=== PATIENT | male | born 1950 | race Caucasian/White ===

== ENCOUNTER 2018-12-08 19:27 | Emergency (ER) | payer MEDICARE, OTHER ==
[~2018-12-08] VITALS: Ht 188 cm; Wt 122.5 kg
--- NOTE | 2018-12-08 19:47 | NUR ---
Pt provided urine sample, sent to lab.
--- NOTE | 2018-12-08 19:48 | NUR ---
MD AT BEDSIDE FOR HX AND PHYSICAL
--- NOTE | 2018-12-08 19:54 | NUR ---
LAB AT BEDSIDE
[2018-12-08 20:02] LABS: BASOPHILS % (AUTO) 0.2 % (0.0-2.0); EOSINOPHILS % (AUTO) 0.3 % (0.0-7.0); HEMATOCRIT 42.5 % (36.7-47.1); HEMOGLOBIN 14.1 g/dL (12.5-16.3); LYMPHOCYTES # (AUTO) 0.7 K/uL (20.0-40.0); LYMPHOCYTES % (AUTO) 5.2 % (20.5-51.5); MEAN CORPUSCULAR HEMOGLOBIN 31.1 uug (23.8-33.4); MEAN CORPUSCULAR HGB CONC 33 g/dL (32.5-36.3); MEAN CORPUSCULAR VOLUME 93.4 fL (73.0-96.2); MONOCYTES # (AUTO) 0.8 K/uL (2.0-10.0); MONOCYTES % (AUTO) 6.8 % (0.0-11.0); NEUTROPHILS # (AUTO) 10.9 K/uL (1.8-8.9); NEUTROPHILS % (AUTO) 87.5 % (38.5-71.5); PLATELET COUNT (AUTO) 284 K/uL (152-348); RED BLOOD CELL COUNT(AUTO) 4.54 MIL/uL (4.06-5.63); WHITE BLOOD COUNT (AUTO) 12.5 K/uL (3.6-10.2)
[2018-12-08 20:06] LABS: *BILIRUBIN,URIN NEGATIVE (NEGATIVE); *BLOOD, URINE 1+ (NEGATIVE); *CLARITY,URINE CLEAR (CLEAR); *COLOR,URINE YELLOW (YELLOW); *KETONES,URINE NEGATIVE (NEGATIVE); *UROBILINOGEN,URINE 0.2 E.U./dl (NORMAL); LEUKOCYTE ESTERASE ,URINE 2+ (NEGATIVE); NITRITE, URINE NEGATIVE (NEGATIVE); UGLUCOSE NEGATIVE (NEGATIVE)
[2018-12-08 20:10] LABS: CREATININE 1.2 mg/dL (0.6-1.3); POTASSIUM 4.3 mmol/L (3.5-5.1)
[2018-12-08 20:17] LABS: BACTERIA,URINE NONE SEEN /HPF (NONE SEEN); SQUAMOUS EPITHELIAL CELL,UR FEW /HPF (NONE SEEN)
--- NOTE | 2018-12-08 20:31 | NUR ---
CALLED AND LEFT MESSAGE FOR CHELA SANCHES (UROLOGY CONSULT)
[2018-12-08 20:37] LABS: BILIRUBIN,DIRECT 0.2 mg/dL (0.0-0.2); BILIRUBIN,TOTAL 0.9 mg/dL (0.2-1.0); TOTAL PROTEIN, SERUM 7.6 g/dL (6.4-8.2)
--- NOTE | 2018-12-08 20:48 | NUR ---
CALLED AND LEFT MESSAGE FOR MARKO SANCHES (UROLOGY CONSULT)
[2018-12-08] MEDS ORDERED: LEVOFLOXACIN 500 MG/D5W 100ML PIGGYBACK IV ONE (21:15)
[2018-12-08] MEDS ORDERED: LEVOFLOXACIN 500 MG/D5W 100 ML ONE (21:20)
--- NOTE | 2018-12-08 21:45 | NUR ---
[employer]IVE [employer] DEVELOPER AT BEDSIDE
--- NOTE | 2018-12-08 22:32 | NUR ---
Patient discharged to home in stable conditon. Written and verbal after care instructions given. Patient verbalizes understanding of instructions. IV SALINE LOCK D/C AMBULATORY W/ STABLE GAIT ALL BELONGINGS W/ PT
--- NOTE | 2018-12-08 22:50 | NUR ---
Ugo mcdonnell in ED - 12/08/18 at 2307 by JUAN CALL FOR BED DONE. PT WILL BE ADMITTED TO 323 EPIC PANEL CALL DONE
[2018-12-08 23:34] VITALS: BP 116/69
== END 2018-12-08 22:32 | disposition home or self-care (01) ==
LOC: ER 19:28
DX: N39.0 Urinary tract infection, site not specified (principal); Z87.891 Personal history of nicotine dependence; Z91.040 Latex allergy status
CPT/HCPCS: 36415; 76775; 80048; 80076; 81000; 81001; 83605; 85025; 87040 ×2; 87086; 96365; 99284; J1956; A4663

== ENCOUNTER 2018-12-10 18:03 | Inpatient (IN) | payer MEDICARE, OTHER ==
[~2018-12-10] VITALS: Ht 188 cm; Wt 120.3 kg
[2018-12-10 18:32] LABS: BASOPHILS % (AUTO) 0.3 % (0.0-2.0); EOSINOPHILS % (AUTO) 0.5 % (0.0-7.0); HEMATOCRIT 40.2 % (36.7-47.1); HEMOGLOBIN 13.3 g/dL (12.5-16.3); LYMPHOCYTES # (AUTO) 0.7 K/uL (20.0-40.0); LYMPHOCYTES % (AUTO) 7.1 % (20.5-51.5); MEAN CORPUSCULAR HEMOGLOBIN 31.1 uug (23.8-33.4); MEAN CORPUSCULAR HGB CONC 33 g/dL (32.5-36.3); MEAN CORPUSCULAR VOLUME 94.3 fL (73.0-96.2); MONOCYTES # (AUTO) 0.4 K/uL (2.0-10.0); MONOCYTES % (AUTO) 4.1 % (0.0-11.0); NEUTROPHILS # (AUTO) 8.5 K/uL (1.8-8.9); PLATELET COUNT (AUTO) 229 K/uL (152-348); RED BLOOD CELL COUNT(AUTO) 4.26 MIL/uL (4.06-5.63); WHITE BLOOD COUNT (AUTO) 9.7 K/uL (3.6-10.2)
[2018-12-10 18:33] LABS: *BILIRUBIN,URIN 2+ (NEGATIVE); *BLOOD, URINE 2+ (NEGATIVE); *CLARITY,URINE CLOUDY (CLEAR); *COLOR,URINE DARK YELLOW (YELLOW); *KETONES,URINE TRACE (NEGATIVE); LEUKOCYTE ESTERASE ,URINE 2+ (NEGATIVE); NITRITE, URINE NEGATIVE (NEGATIVE); PH,URINE 5.5 (5.0-8.0); UGLUCOSE NEGATIVE (NEGATIVE)
[2018-12-10 18:41] LABS: CREATININE 1.4 mg/dL (0.6-1.3); POTASSIUM 4.2 mmol/L (3.5-5.1)
[2018-12-10 18:47] LABS: BILIRUBIN,DIRECT 0.3 mg/dL (0.0-0.2); BILIRUBIN,TOTAL 1.1 mg/dL (0.2-1.0); TOTAL PROTEIN, SERUM 7.2 g/dL (6.4-8.2)
[2018-12-10 18:54] LABS: WBC,URINE 20-50 /HPF (0-3)
[2018-12-10 18:55] LABS: BACTERIA,URINE FEW /HPF (NONE SEEN); SQUAMOUS EPITHELIAL CELL,UR MODERATE /HPF (NONE SEEN)
[2018-12-10] MEDS ORDERED: PIPERACILLIN SODIUM/TAZOBACTAM 3.375 G in IV DEXTROSE 5% 50 ML IV ONE (19:30)
[2018-12-10] MEDS ORDERED: PIPERACILLIN/TAZOBACTAM/D5W 50 ML IV ONE (19:47)
--- NOTE | 2018-12-10 20:13 | NUR ---
Patient transported to CT in stable condition.
--- NOTE | 2018-12-10 20:23 | NUR ---
Patient back in room from CT in stable condition.
[2018-12-10] MEDS ORDERED: LOSA100T31 PO (21:21)
[2018-12-10] MEDS ORDERED: TEST75GE TD (21:21)
[2018-12-10] MEDS ORDERED: ASPI-605 PO (21:21)
[2018-12-10] MEDS ORDERED: ROSU10TA29 PO (21:21)
[2018-12-10] MEDS ORDERED: AMLO10TA7 PO (21:21)
[2018-12-10] MEDS ORDERED: LEVO500T2 PO (21:21)
[2018-12-10] MEDS ORDERED: ALFU10TA10 PO (21:21)
--- NOTE | 2018-12-10 22:28 | NUR ---
Called for bed and to give report, they stated that they will call back in a few minutes to receive report.
[2018-12-10] MEDS ORDERED: ONDANSETRON 4 MG/2 ML VIAL IV PRN (23:15)
[2018-12-10] MEDS ORDERED: MORPHINE SULFATE 2 MG/1 ML DISP.SYRIN IV PRN (23:15)
[2018-12-10] MEDS ORDERED: ACETAMINOPHEN 325 MG TABLET PO PRN (23:15)
[2018-12-10] MEDS ORDERED: CEFTRIAXONE 1 G in IV DEXTROSE 5% 50 ML IV SCH (23:15)
--- NOTE | 2018-12-10 23:37 | NUR ---
Report given to VALENCIA Galeana
--- NOTE | 2018-12-11 00:17 | NUR ---
Patient transported to [facility] in stable condition. NAD
[2018-12-11 00:20] VITALS: BP 115/54
--- NOTE | 2018-12-11 00:20 | NUR ---
RECEIVED PT FROM ER VIA WHEELCHAIR. DX: CYSTITIS. UNDER THE CARE OF DR. WINTERS. BELONGING LIST DONE. PT SHOWS NO ACUTE DISTRESS. IV INTACT.SENIOR LIVING ASSESSMENT DONE. ADMISSION PROCESS AND CARE PLAN INITIATED. SAFETY AND COMFORT PROVIDED.WILL CONTINUE TO MONITOR.
[2018-12-11] MEDS: IV 1/2NS 1000 ML 1,000 ML IV PRN ×2 (01:06→17:26)
[2018-12-11] MEDS ORDERED: CEFTRIAXONE 1 G VIAL ONE (01:10)
[2018-12-11 04:30] VITALS: BP 130/60
--- NOTE | 2018-12-11 06:10 | NUR ---
PT SLEPT INTERMITTENTLY. PT SHOWS NO SIGNS OF ACUTE DISTRESS. PT IV INTACT. PRESCRIBED MEDICATION GIVEN AT PT TOLERATED IT WELL. SAFETY AND COMFORT PROVIDED. ALL NEEDS ARE MET. WILL ENDORSE ACCORDINGLY TO INCOMING NURSE FOR CONTINUITY OF CARE.
[2018-12-11] MEDS: PANTOPRAZOLE SODIUM 40 MG TABLET.DR PO SCH (06:12)
[2018-12-11 06:28] LABS: BASOPHILS % (AUTO) 0.2 % (0.0-2.0); EOSINOPHILS # (AUTO) 0.1 K/uL (0.0-0.7); EOSINOPHILS % (AUTO) 0.9 % (0.0-7.0); HEMATOCRIT 38.1 % (36.7-47.1); HEMOGLOBIN 13.4 g/dL (12.5-16.3); LYMPHOCYTES # (AUTO) 0.4 K/uL (20.0-40.0); LYMPHOCYTES % (AUTO) 7.6 % (20.5-51.5); MEAN CORPUSCULAR HGB CONC 35 g/dL (32.5-36.3); MEAN CORPUSCULAR VOLUME 93.7 fL (73.0-96.2); MONOCYTES # (AUTO) 0.4 K/uL (2.0-10.0); MONOCYTES % (AUTO) 6.7 % (0.0-11.0); NEUTROPHILS # (AUTO) 4.9 K/uL (1.8-8.9); NEUTROPHILS % (AUTO) 84.6 % (38.5-71.5); PLATELET COUNT (AUTO) 228 K/uL (152-348); RED BLOOD CELL COUNT(AUTO) 4.07 MIL/uL (4.06-5.63); WHITE BLOOD COUNT (AUTO) 5.7 K/uL (3.6-10.2)
[2018-12-11 06:36] LABS: BILIRUBIN,TOTAL 0.7 mg/dL (0.2-1.0); CREATININE 1.2 mg/dL (0.6-1.3); MAGNESIUM 1.9 mg/dL (1.8-2.4); PHOSPHOROUS 2.5 mg/dL (2.5-4.9); POTASSIUM 3.6 mmol/L (3.5-5.1); TOTAL PROTEIN, SERUM 6.7 g/dL (6.4-8.2)
[2018-12-11 06:44] LABS: THYROID STIMULATING HORMONE 1.533 mIU/mL (0.358-3.740)
--- NOTE | 2018-12-11 07:10 | NUR ---
RECEIVED PATIENT IN BED RESTING , ON IV FLUIDS 1/2 NS AT 70 MLS/HR, NO C/O PAIN AT THIS TIME, NO S/S OF ACUTE DISTRESS NOTED AT THIS TIME. SAFETY PROVIDED AT ALL TIME. WILL CONTINUE TO MONITOR. CALL LIGHT WITHIN REACHED.
[2018-12-11] MEDS ORDERED: ALFUZOSIN HCL 10 MG TAB.SR.24H PO SCH ×2 (09:00→21:00)
[2018-12-11] MEDS ORDERED: ASPIRIN EC 81 MG TABLET.DR PO SCH (09:00)
[2018-12-11] MEDS: LOSARTAN POTASSIUM 50 MG TABLET PO SCH (09:14)
[2018-12-11] MEDS: AMLODIPINE 10 MG TABLET PO SCH (09:14)
[2018-12-11 12:05] VITALS: BP 122/52
--- NOTE | 2018-12-11 14:20 | NUR ---
PATIENT SEEN BY DR. ALEXANDER.
[2018-12-11 16:05] VITALS: BP 100/48
[2018-12-11 19:46] VITALS: BP 123/58
[2018-12-11] MEDS: DOCUSATE SODIUM 100 MG CAPSULE PO SCH (20:33)
[2018-12-11] MEDS: ALFUZOSIN HCL 10 MG TAB.SR.24H PO SCH (20:34)
[2018-12-11] MEDS: ATORVASTATIN 20 MG TABLET PO SCH (20:34)
[2018-12-12] MEDS: CEFTRIAXONE 1 G in IV DEXTROSE 5% 50 ML IV SCH (01:47)
[2018-12-12 05:13] VITALS: BP 131/62
--- NOTE | 2018-12-12 05:25 | NUR ---
patient slept throughout the night. no signs of acute distress. v/s stable and afebrile. safety and comfort measures provided at all times. all medications prescribed administered and tolerated well. will continue plan of care and endorse to morning shift accordingly.
[2018-12-12 06:30] LABS: BASOPHILS % (AUTO) 0.5 % (0.0-2.0); EOSINOPHILS # (AUTO) 0.2 K/uL (0.0-0.7); HEMATOCRIT 38.6 % (36.7-47.1); HEMOGLOBIN 13.5 g/dL (12.5-16.3); LYMPHOCYTES # (AUTO) 1.1 K/uL (20.0-40.0); LYMPHOCYTES % (AUTO) 24.7 % (20.5-51.5); MEAN CORPUSCULAR HEMOGLOBIN 32.9 uug (23.8-33.4); MEAN CORPUSCULAR HGB CONC 35 g/dL (32.5-36.3); MEAN CORPUSCULAR VOLUME 93.9 fL (73.0-96.2); MONOCYTES # (AUTO) 0.6 K/uL (2.0-10.0); MONOCYTES % (AUTO) 13.3 % (0.0-11.0); NEUTROPHILS # (AUTO) 2.6 K/uL (1.8-8.9); NEUTROPHILS % (AUTO) 56.5 % (38.5-71.5); PLATELET COUNT (AUTO) 262 K/uL (152-348); RED BLOOD CELL COUNT(AUTO) 4.11 MIL/uL (4.06-5.63); WHITE BLOOD COUNT (AUTO) 4.6 K/uL (3.6-10.2)
[2018-12-12] MEDS: PANTOPRAZOLE SODIUM 40 MG TABLET.DR PO SCH (06:30)
[2018-12-12] MEDS: IV 1/2NS 1000 ML 1,000 ML IV PRN ×2 (06:30→21:00)
[2018-12-12 06:45] LABS: CREATININE 1.1 mg/dL (0.6-1.3); MAGNESIUM 2.1 mg/dL (1.8-2.4); PHOSPHOROUS 3.6 mg/dL (2.5-4.9)
--- NOTE | 2018-12-12 09:00 | NUR ---
PATIENT RECEIVED IN BED, SLEEPING BUT EASY TO AWAKE. AOX4. DENIES PAIN OR SOB AT THIS TIME. LT WRIST IVF RUNNING. SAFETY AND FALL PREVENTION IN PLACE. CALL LIGHT IN REACH, BED IN LOW POSITION. BED ALARM ON. ALL NEEDS MET AT THIS TIME. WILL CONTINUE TO MONITOR.
[2018-12-12] MEDS: LOSARTAN POTASSIUM 50 MG TABLET PO SCH (10:00)
[2018-12-12] MEDS: AMLODIPINE 10 MG TABLET PO SCH (10:00)
[2018-12-12 11:00] VITALS: BP 122/65
[2018-12-12 15:11] VITALS: BP 120/63
--- NOTE | 2018-12-12 18:19 | NUR ---
Patient AOx4, pleasant throughout the shift. Patient compliant with all medication administration and nursing care. Denies pain or SOB throughout the shift. Able to turn and reposition independently. Safety and fall prevention in place including bed in low position and locked, call light in reach. VS stable throughout the shift.
[2018-12-12 20:00] VITALS: BP 116/65
[2018-12-12] MEDS ORDERED: ASPIRIN EC 81 MG TABLET.DR PO SCH (21:00)
[2018-12-12] MEDS: DOCUSATE SODIUM 100 MG CAPSULE PO SCH (21:04)
[2018-12-12] MEDS: ATORVASTATIN 20 MG TABLET PO SCH (21:04)
[2018-12-12] MEDS: ALFUZOSIN HCL 10 MG TAB.SR.24H PO SCH (21:04)
[2018-12-13] MEDS: CEFTRIAXONE 1 G in IV DEXTROSE 5% 50 ML IV SCH (01:38)
[2018-12-13 05:00] VITALS: BP 123/71
[2018-12-13 06:40] LABS: BASOPHILS % (AUTO) 0.6 % (0.0-2.0); EOSINOPHILS # (AUTO) 0.4 K/uL (0.0-0.7); EOSINOPHILS % (AUTO) 6.3 % (0.0-7.0); HEMATOCRIT 40.8 % (36.7-47.1); HEMOGLOBIN 13.8 g/dL (12.5-16.3); LYMPHOCYTES # (AUTO) 1.3 K/uL (20.0-40.0); MEAN CORPUSCULAR HEMOGLOBIN 31.2 uug (23.8-33.4); MEAN CORPUSCULAR HGB CONC 34 g/dL (32.5-36.3); MEAN CORPUSCULAR VOLUME 92.6 fL (73.0-96.2); MONOCYTES # (AUTO) 0.6 K/uL (2.0-10.0); MONOCYTES % (AUTO) 11.3 % (0.0-11.0); NEUTROPHILS # (AUTO) 3.2 K/uL (1.8-8.9); NEUTROPHILS % (AUTO) 57.8 % (38.5-71.5); PLATELET COUNT (AUTO) 291 K/uL (152-348); RED BLOOD CELL COUNT(AUTO) 4.41 MIL/uL (4.06-5.63); WHITE BLOOD COUNT (AUTO) 5.6 K/uL (3.6-10.2)
[2018-12-13] MEDS: PANTOPRAZOLE SODIUM 40 MG TABLET.DR PO SCH (06:50)
[2018-12-13 06:54] LABS: CREATININE 0.9 mg/dL (0.6-1.3); MAGNESIUM 2.1 mg/dL (1.8-2.4); PHOSPHOROUS 4.1 mg/dL (2.5-4.9)
[2018-12-13] MEDS: AMLODIPINE 10 MG TABLET PO SCH (08:25)
[2018-12-13] MEDS: LOSARTAN POTASSIUM 50 MG TABLET PO SCH (08:25)
--- NOTE | 2018-12-13 08:44 | NUR ---
Pt. resting in bed AOX4. Pt. denies pain / discomfort. Pt. denies SOB/ difficulty breathing. IV in L Wrist 20 gauge intact patent running 1/2 NS 70 cc/hr. Pt. able to ambulate, turn, and reposition on own. Pt. denies pain or discomfort. Safety measures in place. Will continue to monitor pt.
[2018-12-13] MEDS ORDERED: CEPH-570 PO (09:25)
[2018-12-13] MEDS: IV 1/2NS 1000 ML 1,000 ML IV PRN (10:41)
[2018-12-13 11:17] VITALS: BP 116/64
--- NOTE | 2018-12-13 12:22 | NUR ---
Pt. to be discharged home. Pt. will leave driving his car. Charge nurse aware. Pt is alert oriented x4. Pt. denies any pain or discomfort. Printed out all discharge paperwork for pt.Pt. signed discharge paperwork and belongings list. Provided pt. with prescription for antibiotics. Pt. understands all discharge work. Pt. is stable. Will walk pt. downstairs.
--- NOTE | 2018-12-13 12:34 | NUR ---
Walked pt. downstairs to parking lot. Pt. stable. Removed Iv and ID band. Provided pt. with all discharge paperwork.
== END 2018-12-13 12:40 | disposition home or self-care (01) | DRG 871 ==
LOC: ER 18:09 → MEDSURG3 23:55
PROVIDERS: ADMIT Internal Medicine; ATTEND Internal Medicine
DX: A41.9 Sepsis, unspecified organism (principal); N17.0 Acute kidney failure with tubular necrosis; N39.0 Urinary tract infection, site not specified; E44.0 Moderate protein-calorie malnutrition; Z68.34 Body mass index [BMI] 34.0-34.9, adult; G47.33 Obstructive sleep apnea (adult) (pediatric); E78.5 Hyperlipidemia, unspecified; E66.9 Obesity, unspecified; N40.0 Benign prostatic hyperplasia without lower urinary tract symptoms; M19.90 Unspecified osteoarthritis, unspecified site; M10.9 Gout, unspecified; K80.20 Calculus of gallbladder without cholecystitis without obstruction; K57.30 Diverticulosis of large intestine without perforation or abscess without bleeding; K42.9 Umbilical hernia without obstruction or gangrene; I10 Essential (primary) hypertension; R73.03 Prediabetes; N20.0 Calculus of kidney; N41.9 Inflammatory disease of prostate, unspecified
CPT/HCPCS: 36415; 70030-TC; 71045; 83605; 83735; 84100; 84153; 84443; 85025; 85730; 87040; 87086; A4663; G0378; J0696; J2543; J3490; J7060; J8499